=== PATIENT | female | born 1975 | race Two or more races ===

== ENCOUNTER → 2025-09-01 | Outpatient (CLI) | payer BC, SELFPAY ==
--- NOTE | 2025-09-01 12:57 | XR_ITS ---
Examination: Wrist, right 3 views Technique: Wrist AP, oblique, lateral 3 views Date and time of exam: August 30 2025, 1340 hours INDICATIONS: Injury to the wrist 3 weeks ago, wrist pain. FINDINGS: Moderate osteopenia. No fracture or dislocation No foreign body IMPRESSION: No fracture or dislocation
--- NOTE | 2025-09-01 12:57 | XR_ITS ---
Examination: Hand, right 3 views Technique: Hand AP, oblique, lateral 3 views Date and time of exam: September 01, 2025, 1340 hours INDICATIONS: Right wrist and hand pain beginning 3 weeks ago post injury FINDINGS: Significant osteopenia Focal area of sclerosis in the middle phalanx second digit No acute fracture IMPRESSION: No acute fracture No dislocation
== END | disposition home or self-care (01) ==
LOC: CDIM 12:28
PROVIDERS: PCP Nurse Practitioner Primary Care; Referring Provider Nurse Practitioner Gerontology; Visit Provider Nurse Practitioner Gerontology
DX: S69.91XA Unspecified injury of right wrist, hand and finger(s), initial encounter (principal); X58.XXXA Exposure to other specified factors, initial encounter
CPT/HCPCS: 73110; 73130